=== PATIENT | female | born 1955 | race Caucasian/White ===

== ENCOUNTER 2016-07-10 13:01 | Emergency (ER) | payer MEDICAID ==
[2016-07-10 13:56] LABS: BASO % 1.6 % (0-6); EOS % 0.4 % (0-6); GRAN % 52.1 % (47-80); HEMATOCRIT 38.4 % (35.0-47.0); HEMOGLOBIN 12.7 gm/dl (11.6-16.0); LYMPH % 36.8 % (16-45); MEAN CELL VOLUME 94.6 fl (81-97); MEAN CORPUSCULAR HEMOGLOBIN 31.3 pg (27-33); MEAN CORPUSCULAR HGB CONC 33.1 g/dl (32-36); MEAN PLATELET VOLUME 10.3 fl (7.4-10.4); MONO % 9.1 % (0-9); PLATELET COUNT 306 K/uL (130-400); RED BLOOD COUNT 4.06 M/uL (3.80-5.40); RED CELL DISTRIBUTION WIDTH 11.4 % (11.5-14.5)
[2016-07-10 14:02] LABS: BLOOD UREA NITROGEN 28 mg/dL (7-17); CREATININE 0.9 mg/dL (0.52-1.04); EST GLOMERULAR FILTRATION RATE > 60 ml/min; GLUCOSE,RANDOM 118 mg/dL (70-110)
[2016-07-10 14:16] LABS: TROPONIN I < 0.012 ng/mL (0.00-0.034)
[2016-07-10 14:33] LABS: THYROID STIMULATING HORMONE < 0.02 uIU/ml (0.465-4.68)
[2016-07-10] MEDS ORDERED: POTASSIUM CHLORIDE 20 MEQ TABLET PO ONE (15:14)
--- NOTE | 2016-07-10 15:21 | Emergency Department Record ---
History of Present Illness - General Chief Complaint: Hypertension Stated Complaint: HEART PROBLEM Time Seen by Provider: 07/10/16 13:28 Source: Patient Mode of Arrival: Ambulatory Limitations: No limitations - History of Present Illness Initial Comments: pt has had palpitations and hypertension. she thinks it might be her thyroid. she is being scheduled with an endochronologist Onset/Timin -: Days(s) Timing: Unsure History of Same: No History of Trauma: No Severity: Mild Improves With: Nothing Worsens With: Nothing Associated Symptoms: Denies other symptoms - Related Data Home Medications Medication Instructions Recorded Confirmed Last Taken Aspirin [Aspirin EC] 81 mg PO DAILY 12/26/14 07/10/16 Unknown Atorvastatin Calcium 10 mg PO QD tab 04/13/16 07/10/16 Unknown Allergies Allergy/AdvReac Type Severity Reaction Status Date / Time Penicillins Allergy Unknown ANAPHYLAXIS Unverified 06/27/16 14:20 Travel Screening - Travel/Exposure Within Last 30 Days Have you traveled within the last 30 days?: No Review of Systems Reviewed: No additional complaints except as noted below Constitutional: Reports: As per HPI. Denies: Chills, Fever, Malaise, Night sweats, Weakness, Weight change Eyes: Reports: As per HPI. Denies: Eye discharge, Eye pain, Photophobia, Vision change ENT: Reports: As per HPI. Denies: Congestion, Dental pain, Ear pain, Epistaxis , Hearing loss, Throat pain Respiratory: Reports: As per HPI. Denies: Cough, Dyspnea, Hemoptysis, Stridor, Wheezes Cardiovascular: Reports: As per HPI. Denies: Arrhythmia, Chest pain, Dyspnea on exertion, Edema, Murmurs, Orthopnea, Palpitations, Paroxysmal nocturnal dyspnea, Rheumatic Fever, Syncope Endocrine: Reports: As per HPI. Denies: Fatigue, Heat or cold intolerance, Polydipsia, Polyuria Gastrointestinal: Reports: As per HPI. Denies: Abdominal pain, Constipation, Diarrhea, Hematemesis, Hematochezia, Melena, Nausea, Vomiting Genitourinary: Reports: As per HPI. Denies: Abnormal menses, Discharge, Dyspareunia, Dysuria, Frequency, Hematuria, Incontinence, Retention, Urgency Musculoskeletal: Reports: As per HPI. Denies: Arthralgia, Back pain, Gout, Joint swelling, Myalgia, Neck pain Skin: Reports: As per HPI. Denies: Bruising, Change in color, Change in hair/ nails, Lesions, Pruritus, Rash Neurological: Reports: As per HPI. Denies: Abnormal gait, Confusion, Headache, Numbness, Paresthesias, Seizure, Tingling, Tremors, Vertigo, Weakness Psychiatric: Reports: As per HPI. Denies: Anxiety, Auditory hallucinations, Depression, Homicidal thoughts, Suicidal thoughts, Visual hallucinations Hematological/Lymphatic: Reports: As per HPI. Denies: Anemia, Blood Clots, Easy bleeding, Easy bruising, Swollen glands Past Medical History - SOCIAL HISTORY Smoking Status: Former smoker Alcohol Use: None Drug Use: None - RESPIRATORY Hx Respiratory Disorders: Yes Hx Asthma: Yes Hx COPD: Yes - CARDIOVASCULAR Hx Cardio Disorders: No - NEURO Hx Neuro Disorders: Yes Hx Headaches: Yes (hx) - GI Hx GI Disorders: No - Hx Genitourinary Disorders: No - ENDOCRINE Hx Endocrine Disorders: Yes Hx Thyroid Disease: Yes (hypo) - MUSCULOSKELETAL Hx Musculoskeletal Disorders: No - PSYCH Hx Psych Problems: No - HEMATOLOGY/ONCOLOGY Hx Hematology/Oncology Disorders: No Family Medical History Any Significant Family History?: Yes Hx Diabetes: Mother Hx Heart Disease: Mother Hx Stroke: Father Physical Exam - General General Appearance: Alert, Oriented x3, Cooperative, Mild distress - Head Head exam: Normal inspection - Eye Eye exam: Normal appearance, PERRL, EOMI Pupils: Normal accommodation - ENT ENT exam: Normal exam, Mucous membranes moist, Normal external ear exam, Normal orophraynx Ear exam: Normal external inspection. negative: External canal tenderness Nasal Exam: Normal inspection. negative: Discharge, Sinus tenderness Mouth exam: Normal external inspection, Tongue normal Teeth exam: Normal inspection. negative: Dental caries Throat exam: Normal inspection. negative: Tonsillar erythema, Tonsillar exudate - Neck Neck exam: Normal inspection, Full ROM. negative: Tenderness - Respiratory Respiratory exam: Normal lung sounds bilaterally. negative: Respiratory distress - Cardiovascular Cardiovascular Exam: Regular rate, Normal rhythm, Normal heart sounds - GI/Abdominal GI/Abdominal exam: Soft, Normal bowel sounds. negative: Tenderness - Rectal Rectal exam: Deferred - exam: Deferred - Extremities Extremities exam: Normal inspection, Full ROM, Normal capillary refill. negative: Tenderness - Back Back exam: Reports: Normal inspection, Full ROM. Denies: Muscle spasm, Rash noted, Tenderness - Neurological Neurological exam: Alert, Normal gait, Oriented X3, Reflexes normal - Psychiatric Psychiatric exam: Normal affect, Normal mood - Skin Skin exam: Dry, Intact, Normal color, Warm Course Vital Signs 07/10/16 07/10/16 13:12 15:14 Temperature 98.2 F Pulse Rate 105 H Pulse Rate [ 104 H Pulse Ox Probe] Respiratory 20 18 Rate Blood Pressure 182/78 Blood Pressure 145/69 [Left Arm] Pulse Ox 95 95 - Reevaluation(s) Reevaluation #1: 07/10/16 15:19 pt doing better. d/w bright who came over and talked to pt. bright is getting pt [facility] with [facility] Medical Decision Making - Lab Data Result diagrams: 07/10/16 13:35 07/10/16 13:35 Lab Results 07/10/16 07/10/16 Range/Units 13:35 13:35 WBC 5.0 (4.2-12.2) K/uL RBC 4.06 (3.80-5.40) M/uL Hgb 12.7 (11.6-16.0) gm/dl Hct 38.4 (35.0-47.0) % MCV 94.6 (81-97) fl MCH 31.3 (27-33) pg MCHC 33.1 (32-36) g/dl RDW 11.4 L (11.5-14.5) % Plt Count 306 (130-400) K/uL MPV 10.3 (7.4-10.4) fl Gran % 52.1 (47-80) % Lymphocytes % 36.8 (16-45) % Monocytes % 9.1 H (0-9) % Eosinophils % 0.4 (0-6) % Basophils % 1.6 (0-6) % Sodium 138 (136-145) mmol/L Potassium 3.2 L (3.5-5.1) mmol/L Chloride 96 L (98-107) mmol/L Carbon Dioxide 28.0 (22-30) mmol/L Anion Gap 14.0 (7-16) BUN 28 H (7-17) mg/dL Creatinine 0.9 (0.52-1.04) mg/dL Estimated GFR > 60 ml/min Random Glucose 118 H (70-110) mg/dL Calcium 10.0 (8.5-10.1) mg/dL Troponin I < 0.012 (0.00-0.034) ng/mL TSH < 0.02 L (0.465-4.68) uIU/ml Thyroxine (T4) 15.70 H (5.53-11.0) ug/dl T3 Uptake 41.60 H (23.5-40.5) % Disposition Disposition: Discharge Clinical Impression: Hyperthyroidism, Palpitations Disposition: Home, Self-Care Condition: (1) Good Instructions: Hypertension (ED), Palpitations (ED), Hyperthyroidism (ED) Additional Instructions: follow up with family doctor. return sooner if worse. limit caffeine. follow up with an senior dentist Forms: Patient Portal Access
== END 2016-07-10 15:35 | disposition home or self-care (01) ==
LOC: ER 13:01
DX: E05.90 Thyrotoxicosis, unspecified without thyrotoxic crisis or storm (principal); R00.2 Palpitations; I10 Essential (primary) hypertension; J44.9 Chronic obstructive pulmonary disease, unspecified; F17.200 Nicotine dependence, unspecified, uncomplicated
CPT/HCPCS: 80048; 84436; 84443; 84479; 84484; 85025; 93005; 93010; 99284

== ENCOUNTER 2017-04-26 22:13 | Emergency (ER) | payer SELFPAY ==
[2017-04-26] MEDS ORDERED: PREDNISONE 20 MG TAB PO ONE (22:21)
[2017-04-26] MEDS ORDERED: DIPHENHYDRAMINE ELIXIR 25MG/10ML UD PO ONE (22:21)
--- NOTE | 2017-04-26 22:21 | Emergency Department Record ---
History of Present Illness - General Stated complaint: SWELLING AND ITCHING ON LEFT HAND,BUG BITE? Time Seen by Provider: 04/26/17 22:15 Source: Patient Mode of Arrival: Ambulatory Limitations: No limitations - History of Present Illness Initial comments: 61 yo female presents with hand itching and swelling. About 6 hours ago she was driving. She developed itching and swelling over the thenar eminence area of the left hand. The hand continued to swell and itch. No cough, wheezing, facial or throat swelling or itching. The swelling and itching are isolated to the left hand. I had her remove her rings without difficulty. No pain. No history of prior severe reactions. PCP is at the [facility] MD Complaint: Extremity swelling -: Hour(s) (6) Location: Left Radiation: Distal Quality: Other (itches) Consistency: Constant Improves with: Nothing Worsens with: Nothing Associated Symptoms: Denies other symptoms - Related Data Home Medications Medication Instructions Recorded Confirmed Last Taken Levothyroxine Sodium 75 mcg PO DAILY 04/26/17 04/26/17 04/26/17 [Levothyroxine Sodium] Previous Rx's Medication Instructions Recorded Diphenhydramine HCl [Benadryl] 25 mg PO Q6H #20 cap 04/26/17 Prednisone [Prednisone 20Mg] 20 mg PO BID #10 tab 04/26/17 Allergies Allergy/AdvReac Type Severity Reaction Status Date / Time Penicillins Allergy Unknown ANAPHYLAXIS Unverified 04/03/17 10:14 Review of Systems Constitutional: Denies: Chills, Fever, Malaise, Weakness Eyes: Denies: Eye discharge, Eye pain ENT: Denies: Congestion, Throat pain Respiratory: Denies: Cough, Dyspnea, Hemoptysis, Stridor, Wheezes Cardiovascular: Denies: Chest pain, Syncope Endocrine: Denies: Fatigue Gastrointestinal: Denies: Abdominal pain, Diarrhea, Nausea, Vomiting Genitourinary: Denies: Dysuria, Hematuria, Urgency Musculoskeletal: Reports: Joint swelling. Denies: Arthralgia, Back pain, Myalgia Skin: Reports: Pruritus. Denies: Bruising, Change in color Neurological: Denies: Confusion, Headache, Numbness, Weakness Psychiatric: Denies: Anxiety Hematological/Lymphatic: Denies: Blood Clots, Easy bleeding, Easy bruising, Swollen glands Past Medical History - SOCIAL HISTORY Smoking Status: Former smoker Drug Use: None - RESPIRATORY Hx Respiratory Disorders: Yes Hx Asthma: Yes Hx COPD: Yes - CARDIOVASCULAR Hx Cardio Disorders: No - NEURO Hx Neuro Disorders: Yes Hx Headaches: Yes (hx) - GI Hx GI Disorders: No - Hx Genitourinary Disorders: No - ENDOCRINE Hx Endocrine Disorders: Yes Hx Thyroid Disease: Yes (hypo) - MUSCULOSKELETAL Hx Musculoskeletal Disorders: No - PSYCH Hx Psych Problems: No - HEMATOLOGY/ONCOLOGY Hx Hematology/Oncology Disorders: No Family Medical History Hx Diabetes: Mother Hx Heart Disease: Mother Hx Stroke: Father Physical Exam - General General Appearance: Alert, Oriented x3, Cooperative, No acute distress Limitations: No limitations - Head Head exam: Normal inspection - Eye Eye exam: Normal appearance. negative: Conjunctival injection, Periorbital swelling, Scleral icterus - ENT ENT exam: Normal exam, Mucous membranes moist, Normal external ear exam, Normal orophraynx. negative: Mucous membranes dry Ear exam: Normal external inspection Nasal Exam: Normal inspection Mouth exam: Normal external inspection Teeth exam: Normal inspection Throat exam: Normal inspection - Neck Neck exam: Normal inspection, Full ROM. negative: Lymphadenopathy, Tenderness - Respiratory Respiratory exam: Normal lung sounds bilaterally. negative: Decreased breath sounds, Prolonged expiratory, Respiratory distress, Rhonchi, Stridor, Wheezes - Cardiovascular Cardiovascular Exam: Regular rate, Normal rhythm, Normal heart sounds Peripheral Pulses: 2+: Radial (L) - Rectal Rectal exam: Deferred - exam: Deferred - Extremities Extremities exam: Full ROM, Joint swelling, Normal capillary refill. negative: Normal inspection Image of Full Body: 1 - mild localized swellling with hive like appearance, full ROM, itches - Back Back exam: Reports: Normal inspection - Neurological Neurological exam: Alert, Normal gait, Oriented X3 - Psychiatric Psychiatric exam: Normal affect, Normal mood - Skin Skin exam: Dry, Intact, Normal color, Warm Course - Reevaluation(s) Reevaluation #1: 04/26/17 22:34 The patient is doing well with only isolated hand swelling and itching DC with Prednisone and Benadryl We discuss follow up, reasons to return. Disposition Disposition: Discharge Clinical Impression: Hives Disposition: Home, Self-Care Condition: (1) Good Instructions: Urticaria (ED) Additional Instructions: Ice and elevate Take 25-50mg Benadryl every 6 hours Return if worse, facial or throat swelling or any new concerns Take the Prednisone for the next 4 days Call your doctor for close follow up next week Prescriptions: Diphenhydramine HCl [Benadryl] 25 mg PO Q6H #20 cap Prednisone [Prednisone 20Mg] 20 mg PO BID #10 tab Time of Disposition: 22:35 Quality - Quality Measures Quality Measures: N/A - Blood Pressure Screening Does Patient Have Any of the Following: No Blood Pressure Classification: Hypertensive Reading Systolic Measurement: 199 Diastolic Measurement: 115 Screening for High Blood Pressure: < Pre-Hypertensive BP, F/U Documented > [ [id number]] Pre-Hypertensive Follow-up Interventions: Referral to alternative/primary care provider.
== END 2017-04-26 22:40 | disposition home or self-care (01) ==
LOC: ER 22:13
DX: L50.9 Urticaria, unspecified (principal)
CPT/HCPCS: 99282; J7512